=== PATIENT | female | born 1955 | race Caucasian/White ===

== ENCOUNTER 2017-10-10 17:47 | Emergency (ER) | payer BC, OTHER ==
[~2017-10-10] VITALS: Ht 160 cm; Wt 57.0 kg
[2017-10-10 17:49] VITALS: BP 165/89; PULSE 89; RESP 14; TEMP 98.1; O2SAT 98
[2017-10-10] MEDS ORDERED: IBUP1TAB7 PO (18:14)
[2017-10-10] MEDS ORDERED: CIPR0.3S LEFT EAR (18:14)
[2017-10-10] MEDS ORDERED: KETOROLAC TROMETHAMINE 60 MG/2 ML (IM) VIAL IM ONE (18:15)
--- NOTE | 2017-10-10 18:15 | PD ---
HPI Chief Complaint: ENT Complaint Time Seen by Provider: 18:06 Travel History International Travel<30 days: No Contact w/Intl Traveler<30days: No Traveled to known affect area: No History of Present Illness HPI 62-year-old female presents to the emergency Department with complaint of left ear pain that started this morning. She denies fever, vomiting, nasal congestion, sore throat. Pain comes and goes intermittently. Denies ear drainage. Said she went golfing and use a cotton ball to keep from the wind blowing in her ear, which was causing her pain. Does not taken any medications to alleviate her symptoms. Describes the pain as a stabbing sensation. No known relieving factors. Dr. Hughes's primary care provider. No known allergies. Denies significant past medical history. Has not medical complaints. No other modifying factors or associated signs and symptoms. PFSH Past Medical History Depression: Yes Cancer: Yes (HX RIGHT BREAST CA) Cardiovascular Problems: No Diabetes: No Diminished Hearing: No Endocrine: No Genitourinary: No Hepatitis: No Hiatal Hernia: No Immune Disorder: No Musculoskeletal: Yes (FX LEFT CLAVICLE) Neurologic: No Psychiatric: No Reproductive: No Respiratory: No Thyroid Disease: No Tubal Ligation: Yes Past Surgical History Abdominal Surgery: No Body Medical Devices: NONE Cardiac Surgery: No Ear Surgery: No Endocrine Surgery: No Eye Surgery: No Genitourinary Surgery: No Gynecologic Surgery: Yes (TUBAL) Oral Surgery: Yes (TONSILS) Thoracic Surgery: Yes (RIGHT LUMPECTOMY) Other Surgery: Yes (RIGHT LUMPECTOMY) Social History Alcohol Use: Yes ("daily") Tobacco Use: Yes Substance Use: No Allergies-Medications (Allergen,Severity, Reaction): Coded Allergies: No Known Allergies (Verified Adverse Reaction, Unknown, 10/10/17) Reported Meds & Prescriptions Reported Meds & Active Scripts Active Ibuprofen 800 Mg Tab 800 Mg PO Q6HR PRN Ciprodex Otic Drops (Ciprofloxacin-Dexamethasone Otic Drops) 0.3-0.1% Susp 4 Drop LEFT EAR BID 7 Days Review of Systems Except as stated in HPI: all other systems reviewed are Neg Physical Exam Narrative GENERAL: Well-nourished, well-developed female patient, in no acute distress; afebrile, nontoxic-appearing SKIN: Warm and dry. No rash. HEAD: Atraumatic. Normocephalic. EYES: Pupils equal and round. No scleral icterus. No injection or drainage. ENT: Mucosa pink and moist. No erythema or exudates. No uvular edema. No uvular , palatal, or tonsillar deviation. Airway patent. EARS: Bilateral pinnae and external canals appear within normal limits. Bilateral tympanic membranes without erythema, dullness or perforation. I am able to elicit pain to the outer portion of the left ear canal with otoscope examination, but I do not see anything that could be causing the pain. NECK: Trachea midline. No lymphadenopathy. CARDIOVASCULAR: Regular rate. RESPIRATORY: No accessory muscle use. GASTROINTESTINAL: Flat. MUSCULOSKELETAL: No obvious deformities. No clubbing. No cyanosis. No edema. NEUROLOGICAL: Awake and alert. Oriented 3. No obvious cranial nerve deficits. Motor grossly within normal limits. Normal speech. Moves all extremities. 5/5 strength to all extremities. PSYCHIATRIC: Appropriate mood and affect; insight and judgment normal. Data Data Last Documented VS Vital Signs Date Time Temp Pulse Resp B/P (MAP) Pulse Ox O2 Delivery O2 Flow Rate FiO2 10/10/17 17:49 98.1 89 14 165/89 (114) 98 Room Air Orders Orders Ketorolac Inj (Toradol Inj) (10/10/17 18:15) Ed Discharge Order (10/10/17 18:15) [facility] Medical Decision Making Medical Screen Exam Complete: Yes Emergency Medical Condition: Yes Medical Record Reviewed: Yes Differential Diagnosis Otitis media, otitis externa, perforated eardrum, cerumen impaction, foreign body Narrative Course 62-year-old female with left ear pain. Left ear exam is unremarkable other than I'm able to elicit pain on examination with the otoscope to the outer portion of the ear canal. She is afebrile and nontoxic-appearing. She denies fever, vomiting. Toradol administered in the ER. I will prescribe antibiotic eardrops for possible infection. Ciprodex prescribed for home. Instructed patient to follow up with primary care provider. Patient verbalizes understanding and agreement with treatment plan. Patient is medically cleared and stable for discharge. Discussed reasons to return to the emergency department. Patient agrees with treatment plan. The patients vital signs are stable and the patient is stable for outpatient follow-up and treatment. Patient discharged home, stable and in no acute distress. Diagnosis Primary Impression: Left ear pain Patient Instructions: General Instructions Additional Instructions: Take antibiotics as prescribed and complete full course Ibuprofen or Tylenol as directed and as needed to reduce pain and fever [id number] antihistamines or decongestants as directed and as needed for symptom management Avoid getting water in the ears Do not put anything in the ears; including Q-tips Follow-up with primary care provider Follow-up with ENT as needed Return to the emergency department immediately with worsening of symptoms Med/Other Pt SpecificInfo: Prescription(s) given Scripts Ibuprofen (Ibuprofen) 800 Mg Tab 800 MG PO Q6HR Y for PAIN, #20 TAB 0 Refills Prov: Yvette Chapa 10/10/17 Ciprofloxacin-Dexamethasone Otic Drops (Ciprodex Otic Drops) 0.3-0.1% Susp 4 DROP LEFT EAR BID for Infection for 7 Days, #1 BOTTLE 0 Refills Prov: Yvette Chapa 10/10/17 Disposition: 01 DISCHARGE HOME Condition: Stable Yvette Chapa Oct 10, 2017 18:15
== END 2017-10-10 18:24 | disposition home or self-care (01) ==
LOC: NEPK 17:47
DX: H92.02 Otalgia, left ear (principal); F32.9 Major depressive disorder, single episode, unspecified; Z72.0 Tobacco use
CPT/HCPCS: 96372; 99284; J1885